=== PATIENT | male | born 1985 | race Hispanic/Latino ===

== ENCOUNTER 2017-08-23 05:31 | Emergency (ER) | payer OTHER | END 2017-08-23 05:54 | disposition home or self-care (01) | LOC: ERS 05:31 | DX: Z77.21 Contact with and (suspected) exposure to potentially hazardous body fluids (principal) | CPT/HCPCS: 99283 ==

== ENCOUNTER 2017-10-01 07:54 | Outpatient (CLI) | payer OTHER | END 2017-10-01 07:55 | disposition home or self-care (01) | LOC: BICULT 07:54 | PROVIDERS: ATTEND Family Medicine | DX: R94.5 Abnormal results of liver function studies (principal); K76.0 Fatty (change of) liver, not elsewhere classified; Z90.49 Acquired absence of other specified parts of digestive tract | CPT/HCPCS: 76705 ==